=== PATIENT | female | born 1975 | race Caucasian/White ===

== ENCOUNTER → 2017-11-14 | Outpatient (CLI) | payer OTHER ==
[~2017-11-14] MED LIST: ABILIFY10 MG PO; ALBUTEROL0.09 MG/A2 INH; AMOXICILLIN500 MG PO; B12100 MC1 PO; BACTROBAN2% NAS; BP MEDICATION; BUSPAR DIVIDOSE30 MG PO; CIPRO250 MG PO; CLEOCIN HCL150 MG PO; CLEOCIN150 MG PO; CLINDAMYCIN300 MG PO; CORDROL20 MG PO; COUMADIN10 M1 PO; DAYPRO600 M1 PO; DIFLUCAN150 MG PO; DONNATAL1 TAB PO; EFFEXOR75 MG PO; FIORICET 325 MG1 TAB PO; FLAGYL500 MG PO; HYDROCODONE BIT1 T11 PO; INSULIN STAN U SC; LANTUS100 U/ML SC; LIPITOR40 MG PO; LISINOPRIL10 MG PO; LISINOPRIL5 MG PO; LOMOTIL 0.025 M1 TA1 PO; LOVENOX120 MG/0.8 IJ; METFORMIN500 MG PO; MIRALAX POWDER255 GM PO; MOTRIN800 MG PO; MS CONTIN15 MG PO; NOVOLOG 70/30 M10 ML SC; NOVOLOG SC; NOVOLOG1 UNIT/0.0 SC; NOVOLOG10 ML SC; OMNICEF300 MG PO; PAROXETINE40 MG PO; PEPCID20 MG PO; PERCOCET 325 MG1 TA2 PO; PERCOCET 325 MG1 TA5 PO; PERIDEX 480 ML480 ML PO; PHENERGAN25 M1 PO; PRILOSEC40 MG PO; PRISTIQ100 MG PO; PROTONIX40 MG PO; PROZAC20 MG PO; RISPERDAL2 MG PO; ROBAXIN750 MG PO; ROBITUSSIN AC 110 ML PO; SIMVASTATIN20 MG PO; SYMVASTATIN; SYNTHROID PO; SYNTHROID0.025 MG PO; SYNTHROID25 MCG PO; Synthroid,Lev100 MCG PO; Synthroid,Lev200 MCG PO; TRAMADOL HCL50 MG PO; TRAZODONE100 MG PO; ULTRAM50 MG PO; VANCOMYCIN250 MG/5 M IV; VITAMIN B12; VITAMIN D31000 IU PO; WARFARIN10 MG PO; WELLBUTRIN XL300 MG PO; WELLBUTRIN75 MG PO; XANAX0.5 MG PO; XANAX1 MG PO; XANAX2 MG PO; ZITHROMAX Z PA250 MG PO; ZOCOR20 MG PO; ZOFRAN ODT4 MG SL; ZOFRAN4 MG PO; ZOLOFT100 MG PO; ZOSYN 3 GM-0.371 PD1 IV; [UNRECOGNIZED DRUG - OTHER] SC
== END | disposition home or self-care (01) ==
LOC: MAMMO 14:13
DX: Z12.31 Encounter for screening mammogram for malignant neoplasm of breast (principal)

== ENCOUNTER → 2018-09-17 | Outpatient (CLI) | payer OTHER ==
[~2018-09-17] MED LIST changes: +ALCOHOL PREP P1 EACH T; +COGENTIN0.5 MG PO; +GLUCOPHAGE1000 MG PO; +INGREZZA80 MG PO; +LANTUS SOL100 UNIT/1 SQ; -METFORMIN500 MG PO; +NEURONTIN300 MG PO; +NOVOLOG FL100 UNIT/1 SQ; +SCOOBY-DOO1 EAC1 PO; -SYNTHROID25 MCG PO; +Synthroid,Levo25 MCG PO; +TOUJEO MAX300 UNIT/1 SQ; +TRAZODONE50 MG PO; +TRILEPTAL PO; +TRINTELLIX10 MG PO; +VISTARIL50 MG PO; -VITAMIN D31000 IU PO; +VITAMIN D31000 UNI1 PO; +VITAMIN D50000 UNIT PO; +VRAYLAR6 MG PO; +XARE20MG PO
[2018-09-17 09:47] LABS: FREE T4 0.98 ng/dl (0.76-1.46)
== END | disposition home or self-care (01) ==
LOC: LAB 08:08
PROVIDERS: Family Medicine
DX: M25.562 Pain in left knee (principal); E03.9 Hypothyroidism, unspecified; E11.65 Type 2 diabetes mellitus with hyperglycemia

== ENCOUNTER → 2019-01-04 | Outpatient (CLI) | payer OTHER | END | disposition home or self-care (01) | LOC: MRI 10:46 | DX: S83.232A Complex tear of medial meniscus, current injury, left knee, initial encounter (principal); M25.462 Effusion, left knee; X58.XXXA Exposure to other specified factors, initial encounter; Y93.89 Activity, other specified; Y92.89 Other specified places as the place of occurrence of the external cause; Y99.8 Other external cause status; Z91.81 History of falling ==

== ENCOUNTER → 2019-03-26 | Outpatient (CLI) | payer OTHER | END | disposition home or self-care (01) | LOC: LAB 12:44 | PROVIDERS: Nurse Practitioner Family | DX: R19.7 Diarrhea, unspecified (principal); R10.84 Generalized abdominal pain ==